=== PATIENT | male | born 1985 | race Two or more races ===

== ENCOUNTER 2019-10-13 22:26 | Emergency (ER) | payer MEDICAID ==
[~2019-10-13] VITALS: Ht 175.3 cm; Wt 63.5 kg
[2019-10-13 22:35] VITALS: BP 166/86
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
[2019-10-13] MEDS ORDERED: LORazepam Inj 2mg/ml 1ml IM ONE (23:00)
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
[2019-10-13] MEDS ORDERED: Haloperidol 5mg/ml Inj IM ONE (23:45)
--- NOTE | 2019-10-14 | NUR ---
ED Nurse Note: Pt laying in bed yelling non-stop. Pt is uncooperative and verbally abusive.
[2019-10-14 00:30] VITALS: BP 154/78
[2019-10-14 00:48] LABS: ANION GAP 11 mmol/L (5-15); BLOOD UREA NITROGEN 13 mg/dL (7-18); CARBON DIOXIDE 29 MMOL/L (21-32); CHLORIDE 103 MMOL/L (98-107); CREATININE 1.3 MG/DL (0.55-1.30); POTASSIUM 3.3 MMOL/L (3.5-5.1); SODIUM 143 MMOL/L (136-145)
[2019-10-14 02:30] VITALS: BP 147/72
--- NOTE | 2019-10-14 02:40 | NUR ---
ED Nurse Note: Pt to CT
--- NOTE | 2019-10-14 03:00 | NUR ---
ED Nurse Note: Pt back from CT
--- NOTE | 2019-10-14 03:47 | Diagnostic Imaging Report ---
Indications: Headache Technique: Spiral acquisitions obtained through the brain. Angled axial and coronal 5 x 5 mm slices were reconstructed. Total dose length product 1942 mGycm. CTDI vol(s) 74 mGy. Dose reduction achieved using automated exposure control Comparison: None. Findings: Acute intracranial hemorrhage or edema. No mass effect nor midline shift. Normal rodrigues-white differentiation. Normal size ventricles and extra axial CSF spaces. Intact calvarium. Visualized orbits and sinuses are unremarkable. The mastoids are clear Impression: Negative This agrees with the preliminary interpretation provided overnight by [facility] teleradiology service. The CT scanner at [facility] is accredited by the [employer] and the scans are performed using protocols designed to limit radiation exposure to as low as reasonably achievable to attain images of sufficient resolution adequate for diagnostic evaluation.
--- NOTE | 2019-10-14 05:15 | NUR ---
ER DISCHARGE NOTE: Patient is cleared to be discharged per ERMD, pt is aox4, on room air, with stable vital signs. pt was given dc and prescription instructions, pt was able to verbalize understanding, pt id band and iv site removed without complications. pt is able to ambulate with steady gait. pt took all belongings.
[2019-10-14 05:22] VITALS: BP 148/68
== END 2019-10-14 05:15 | disposition home or self-care (01) ==
LOC: EDBD 22:26 → EMR 23:53
DX: S00.83XA Contusion of other part of head, initial encounter (principal); S50.811A Abrasion of right forearm, initial encounter; F10.129 Alcohol abuse with intoxication, unspecified; Y90.7 Blood alcohol level of 200-239 mg/100 ml; Y04.2XXA Assault by strike against or bumped into by another person, initial encounter; Y93.89 Activity, other specified; Y92.524 Gas station as the place of occurrence of the external cause
CPT/HCPCS: 36415; 70450; 80048; 96372; G0480; J1630; Z7502; 99284